=== PATIENT | female | born 2000 | race African-American/Black ===

== ENCOUNTER 2019-03-22 19:29 | Emergency (ER) | payer MEDICAID ==
[~2019-03-22] VITALS: Ht 149.9 cm; Wt 71.0 kg
[2019-03-22 22:26] LABS: CLARITY URINE CLOUDY (CLEAR); COLOR URINE YELLOW (YELLOW); KETONES URINE NEGATIVE (NEGATIVE); LEUKOCYTE ESTERASE URINE 3+ (NEGATIVE); NITRITE URINE NEGATIVE (NEGATIVE); OCCULT BLOOD URINE 3+ (NEGATIVE); PROTEIN URINE 2+ (NEGATIVE); SPECIFIC GRAVITY URINE 1.019 (1.005-1.030); UROBILINOGEN URINE 0.2 E.U./dL (0.2-1.0)
[2019-03-22] MEDS ORDERED: KETOROLAC 30MG/ML VIAL IM ONE (22:45)
[2019-03-22 23:03] VITALS: BP 122/84
== END 2019-03-22 23:04 | disposition home or self-care (01) ==
LOC: ER 19:29
DX: N39.0 Urinary tract infection, site not specified (principal)
CPT/HCPCS: 81003; 81025; 87077; 87086; 87186; 96372; 99283; J1885

== ENCOUNTER 2019-05-13 11:40 | Emergency (ER) | payer MEDICAID, OTHER ==
[~2019-05-13] VITALS: Ht 149.9 cm; Wt 73.0 kg
[2019-05-13] MEDS ORDERED: ONDANSETRON 4MG ODT PO STA (14:56)
[2019-05-13] MEDS ORDERED: KETOROLAC 60MG/2ML VIAL IM STA (14:56)
[2019-05-13] MEDS ORDERED: ACETAMINOPHEN 325MG TABLET PO STA (15:06)
[2019-05-13 15:15] LABS: CLARITY URINE CLEAR (CLEAR); COLOR URINE YELLOW (YELLOW); KETONES URINE NEGATIVE (NEGATIVE); LEUKOCYTE ESTERASE URINE 1+ (NEGATIVE); NITRITE URINE NEGATIVE (NEGATIVE); OCCULT BLOOD URINE NEGATIVE (NEGATIVE); PROTEIN URINE 2+ (NEGATIVE); SPECIFIC GRAVITY URINE 1.016 (1.005-1.030); UROBILINOGEN URINE 0.2 E.U./dL (0.2-1.0)
[2019-05-13 15:30] LABS: BASOPHILS % 0.6 % (0.0-2.0); EOSINOPHILS % 0.4 % (0.0-5.0); HEMATOCRIT. 35.3 % (36.0-48.0); LYMPHOCYTES % 21.7 % (20.0-50.0); MEAN CORPUSCULAR HEMOGLOBIN 28.9 pg (28.0-32.0); MEAN CORPUSCULAR VOLUME 84.8 fL (81.0-99.0); MEAN PLATELET VOLUME 7.8 fl (7.4-10.4); MONOCYTES % 10.1 % (2.0-8.0); NEUTROPHILS % 67.2 % (40.0-76.0); PLATELET 270 x1000/uL (130-400); RED BLOOD CELL COUNT 4.16 mill/uL (4.2-5.4); RED CELL DISTRIBUTION WIDTH 12.2 % (11.6-14.6)
[2019-05-13] MEDS ORDERED: CEFTRIAXONE SODIUM 1 G/VIAL IM ONE (16:15)
[2019-05-13] MEDS ORDERED: LIDOCAINE HCL/PF 1% 10 MG/ML 5ML VIAL IJ ONE (16:15)
[2019-05-13 17:11] VITALS: BP 124/77
[2019-05-14 09:34] LABS: PHENCYCLIDINE URINE SCREEN NEGATIVE (NEGATIVE)
[2019-05-14 09:35] LABS: *AMPHETAMINES SCREEN URINE NEGATIVE (NEGATIVE); *BARBITURATES SCREEN URINE NEGATIVE (NEGATIVE); *BENZODIAZEPINES SCREEN URINE NEGATIVE (NEGATIVE); *COCAINE SCREEN URINE NEGATIVE (NEGATIVE); CANNABINOID URINE SCREEN NEGATIVE (NEGATIVE); METHADONE URINE SCREEN NEGATIVE (NEGATIVE); OPIATES URINE SCREEN NEGATIVE (NEGATIVE)
== END 2019-05-13 17:14 | disposition home or self-care (01) ==
LOC: ER 11:40
DX: O23.42 Unspecified infection of urinary tract in pregnancy, second trimester (principal); O21.9 Vomiting of pregnancy, unspecified; Z3A.16 16 weeks gestation of pregnancy; R51 Headache
CPT/HCPCS: 36415; 80305; 81003; 81025; 84702; 85025; 86850; 86900; 86901; 96372; 99283; J0696; J3490; Q0162